=== PATIENT | female | born 1990 | race Asian ===

== ENCOUNTER 2022-04-30 20:11 | Emergency (ER) | payer MEDICAID, OTHER ==
[~2022-04-30] VITALS: Ht 144.8 cm; Wt 49.9 kg
--- NOTE | 2022-04-30 21:00 | NUR ---
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
--- NOTE | 2022-04-30 21:45 | NUR ---
SUNG C/O MED CLEARANCE TO GO BACK TO FAC[facility], -SI/-HI. AMBULATORY, PLACED ON BED, AWAKE, ALERT, TALKATIVE, UNCOOPERATIVE, NOT ANSWERING QUESTION.
[2022-04-30] MEDS ORDERED: QUET100T PO (21:50)
[2022-04-30] MEDS ORDERED: RISP2TAB5 PO (21:50)
[2022-04-30] MEDS ORDERED: ESCI10TA GT (21:50)
[2022-04-30 22:58] LABS: BASOPHILS # (AUTO) 0.1 K/uL (0.0-0.2); BASOPHILS % (AUTO) 2.1 % (0.0-2.0); EOSINOPHILS % (AUTO) 8.4 % (0.0-6.0); HEMATOCRIT 32 % (33-45); HEMOGLOBIN 10.5 g/dL (11.5-14.8); LYMPHOCYTES % (AUTO) 34.4 % (20.0-44.0); MEAN CORPUSCULAR HGB CONC 33 g/dl (31.0-36.0); MEAN CORPUSCULAR VOLUME 91 fL (82-100); MONOCYTES # (AUTO) 0.6 K/uL (0.1-1.30); MONOCYTES % (AUTO) 9.9 % (2.0-12.0); NEUTROPHILS # (AUTO) 2.7 K/uL (1.8-8.9); NEUTROPHILS % (AUTO) 45.2 % (43.0-81.0); PLATELET COUNT (AUTO) 429 K/uL (150-450); RED BLOOD CELL COUNT(AUTO) 3.48 MIL/uL (4.0-5.2); WHITE BLOOD COUNT (AUTO) 5.9 K/uL (4.3-11.0)
[2022-04-30 23:08] LABS: BILIRUBIN,URINE NEGATIVE (NEGATIVE); COLOR,URINE YELLOW (YELLOW); LEUKOCYTE ESTERASE ,URINE NEGATIVE (NEGATIVE); NITRITE, URINE NEGATIVE (NEGATIVE); PROTEIN,URINE NEGATIVE (NEGATIVE); UGLUCOSE NEGATIVE (NEGATIVE); UROBILINOGEN,URINE 0.2 EU/dL (0.2)
--- NOTE | 2022-04-30 23:14 | NUR ---
SWAB FOR COVID19 SENT TO LAB
[2022-04-30 23:37] LABS: CALCIUM, SERUM 8.7 mg/dL (8.5-10.1); CARBON DIOXIDE 27 mmol/L (21-32); CHLORIDE 103 mmol/L (98-107); CREATININE 0.7 mg/dL (0.6-1.3); GLUCOSE 97 mg/dL (74-106); POTASSIUM 3.6 mmol/L (3.5-5.1); SODIUM SERUM 137 mmol/L (136-145); UREA NITROGEN, BLOOD 21 mg/dL (7-18)
[2022-04-30 23:43] LABS: BACTERIA,URINE Rare /HPF (None Seen); SQUAMOUS EPITHELIAL CELL,UR Few /HPF (None Seen); WBC,URINE 0-2 /HPF (0-3)
[2022-04-30 23:48] LABS: ALANINE AMINOTRANSFERASE 12 U/L (12-78); ALBUMIN 3.8 g/dL (3.4-5.0); ALKALINE PHOSPHATASE 101 U/L (46-116); ASPARTATE AMINOTRANSFERASE 18 U/L (15-37); BILIRUBIN,DIRECT 0.1 mg/dL (0.0-0.2); BILIRUBIN,TOTAL 0.3 mg/dL (0.2-1.0); TOTAL PROTEIN, SERUM 7.6 g/dL (6.4-8.2)
[2022-04-30 23:51] LABS: ACETAMINOPHEN 0 ug/ml (10-30); ALCOHOL, BLOOD < 3 mg/dL (0-0)
[2022-04-30] MEDS ORDERED: QUETIAPINE FUMARATE 100 MG TABLET ONE (23:51)
[2022-04-30] MEDS ORDERED: risperiDONE 1 MG TABLET ONE (23:52)
[2022-05-01] MEDS: QUETIAPINE FUMARATE 100 MG TABLET PO SCH (00:03)
[2022-05-01] MEDS: risperiDONE 0.25 MG TABLET PO ONE (00:03)
--- NOTE | 2022-05-01 01:15 | NUR ---
PT PROVIDED WITH DINNER. TOLERATING WELL.
--- NOTE | 2022-05-01 02:30 | NUR ---
Clinicals faxed to [facility]
--- NOTE | 2022-05-01 03:09 | NUR ---
PT SLEEPING COMOFRTABLY, ABLE TO MAKE NEEDS KNOWN. SITTER AT BEDSIDE FOR SAFETY PRECAUTIONS.
--- NOTE | 2022-05-01 07:19 | NUR ---
CALLED TO FOLLOW UP WITH [facility] INTAKE REGARDING ADMISSION. PT IS NOT ACCEPTED AT [facility].
--- NOTE | 2022-05-01 08:15 | NUR ---
BREAKFAST TRAY PROVIDED, TOLERATED WELL
--- NOTE | 2022-05-01 09:39 | NUR ---
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 WILL FOLLOW UP ACCORDINGLY.
--- NOTE | 2022-05-01 09:59 | NUR ---
ORDER ENTRY ADMINISTRATOR HUNTER AT BEDSIDE.
--- NOTE | 2022-05-01 10:13 | NUR ---
[facility] CALLED AND WAS NOTIFIED THAT THE PT IS A DO NOT ADMIT TO [facility]
[2022-05-01] MEDS ORDERED: risperiDONE 1 MG TABLET ONE (10:15)
[2022-05-01] MEDS ORDERED: QUETIAPINE FUMARATE 100 MG TABLET ONE (10:15)
[2022-05-01] MEDS: risperiDONE 0.25 MG TABLET PO STA (10:18)
[2022-05-01] MEDS: QUETIAPINE FUMARATE 100 MG TABLET PO STA (10:20)
--- NOTE | 2022-05-01 11:26 | NUR ---
Called Mat [[phone]] from pt.'s facility, left VM.
--- NOTE | 2022-05-01 11:43 | NUR ---
Spoke with Mat from [facility] [[phone]]. They are willing to take pt. back. Travis from facility will be sisal picker pt. ETA: 1500.
--- NOTE | 2022-05-01 12:13 | NUR ---
SS Note: Pt. Is a 31-year-old female who demonstrates adequate insight to the reason for hospitalization. Per EMR, pt. was self-referred from sober living facility to us for medical clearance for psych. Evaluation. Pt. was oriented x3, alert, and cooperative. During interview, pt. was capable of following directions and appeared groomed. Pt.'s speech was at a normal rate and pt.'s mood was elevated. Pt. reported no hx of mental health, substance abuse, denies suicidal ideation, or homicidal ideation. Pt. denies auditory hallucinations, visual hallucinations, paranoia, or delusions. SW explored pt.'s living situation. Per pt., she resides at [facility] [[address] [place] [address]] sine Wednesday. Pt. stated that she was having twins but had an . Per pt., she does not want kids right now. [facility] will not take pt. due to her lab results. Pt. denies suicidal and is no longer voluntary for psych hospital, so pt. is not holdable. Plan: SW provided available resources and pt. accepted. Pt. spoke with Mat from facility and told him pt. is medically cleared. Mat [[phone]] agreed to take pt. back and will be providing transportation, ETA: 1400. Pt. stated that she will follow-up with her therapist. Resources Provided: Counseling--Outpatient [facility] [address], [place] [address] (Specializes in in-depth psychotherapy for emotional distress: anxiety, depression, interpersonal conflicts, life transitions, childhood abuse) [facility] [address] [place] [address] (Assist with solving problem marital difficulties, separation & divorce, aging parents, & grief, chronic & terminal illness) [facility] [address] [place] [address] (Deal with loss & grief, anxiety, marital difficulties) [facility] [address], [address] [place] [address] (Provide in-home mental services to people who are incapable of leaving their homes) [facility] [address] [place], [place] [id number] [facility] [address] [place] [address] PSYCHIATRIC OUTPATIENT SERVICES [facility] Partial Hospitalization and Intensive Outpatient Program (Managed Care and [place] Only)[address] [facility] [phone] [facility] Partial Hospitalization and Outpatient [id number] [place], [place] [phone] [facility] [id number] [place], [place] [phone] [facility] Partial Hospitalization and Outpatient [id number] [place], [phone] Substance Abuse resources provided included: [facility] Substance Abuse Self-Helpline ([facility]) ; [facility] [address] [place] [address] ; [facility] [address] [facility] [address] [facility] [address] ; [facility] Rehabilitation Program [address] [address] ; [facility] [address] [address] ; [facility] [address] [address] ; [facility] [address] [facility] [address] ; [facility] Substance Abuse Helpline([facility] ; [facility] ; [facility] [place]; [facility] [place]; [facility] Juancarlos Cedillodarian; [facility]; [facility], [facility]. Bulmaro Barton; Alcoholics Anonymous -[facility]; Ce-Qisj-Aocpczy ; Marijuana Anonymous -[facility]; Narcotics Anonymous www.na.org;
--- NOTE | 2022-05-01 15:09 | NUR ---
Patient discharged to [facility], picked up by Travis in stable condition. Written and verbal after care instructions given. Patient verbalizes understanding of instruction.
[2022-05-01 15:24] VITALS: BP 113/64
== END 2022-05-01 15:25 ==
LOC: ER 20:22
DX: F23 Brief psychotic disorder (principal); R79.89 Other specified abnormal findings of blood chemistry; F25.9 Schizoaffective disorder, unspecified; Z20.822 Contact with and (suspected) exposure to COVID-19; Z32.01 Encounter for pregnancy test, result positive; Z72.0 Tobacco use; F12.90 Cannabis use, unspecified, uncomplicated
CPT/HCPCS: 36415; 80048; 80076; 80143; 80307; 80320; 81001; 84702; 84703; 85025; 87426; 99284; C9803; G0480